=== PATIENT | male | born 1990 | race Hispanic/Latino ===

== ENCOUNTER 2017-07-18 22:34 | Emergency (ER) | payer SELFPAY ==
[2017-07-18 22:59] VITALS: TEMP 97.8
[2017-07-18] MEDS ORDERED: PANTOPRAZOLE SODIUM IV 40 MG VIAL IV ONE (23:10)
--- NOTE | 2017-07-18 23:15 | ED.PDOC ---
History of Present Illness - General Chief Complaint: General Stated Complaint: esophageal spasms Time Seen by Provider: 07/18/17 23:03 Source: patient, family Exam Limitations: no limitations Additional Information: C/O "ESOPHAGEAL PAIN". PT HAS HAD SHARP EPIGASTRIC PAIN WHICH RADIATES INTO CHEST. HAS HAD IT ONCE BEFORE RESOLVED SPONTANEOUSLY. - History of Present Illness Timing/Duration: other - HAS BEEN GOING ON SINCE THIS AM. Severity: moderate Improving Factors: nothing - TRIED TUMS WITHOUT RELIEF. Worsening Factors: nothing Associated Symptoms: denies symptoms Allergies/Adverse Reactions: Allergies NO KNOWN ALLERGY Allergy (Verified 12/08/14 15:24) Home Medications: Ambulatory Orders Esomeprazole Magnesium [Nexium] 40 mg PO DAILY #15 cap 07/19/17 Review of Systems - Review of Systems Constitutional: Denies: chills, fever EENTM: States: no symptoms reported Respiratory: States: short of breath. Denies: cough, wheezing Cardiology: States: chest pain. Denies: palpitations, syncope Gastrointestinal/Abdominal: States: nausea. Denies: abdominal pain, diarrhea, vomiting Genitourinary: States: no symptoms reported Musculoskeletal: States: no symptoms reported Skin: States: other - DIAPHORESIS Neurological: States: no symptoms reported Endocrine: States: no symptoms reported Hematologic/Lymphatic: States: no symptoms reported Past Medical History (General) - Patient Medical History Hx Diabetes: No - Vaccination History Hx Tetanus, Diphtheria Vaccination: No Hx Influenza Vaccination: No Hx Pneumococcal Vaccination: No Immunizations Up to Date: No - Social History Hx Tobacco Use: Yes Hx Alcohol Use: Yes Family Medical History - Family History Father Family History: No Known Physical Exam - Physical Exam General Appearance: Alert, No apparent distress Eye Exam: bilateral normal Ears, Nose, Throat: hearing grossly normal, normal ENT inspection Neck: non-tender, full range of motion, supple Respiratory: lungs clear, no respiratory distress Cardiovascular/Chest: regular rate, rhythm, no murmur Gastrointestinal/Abdominal: normal bowel sounds, non tender, soft, no organomegaly Back Exam: normal inspection, no CVA tenderness, no vertebral tenderness Extremity: normal range of motion, normal inspection Neurologic: alert, normal mood/affect Skin Exam: normal color, warm/dry Lymphatic: no adenopathy Progress - Progress Progress: 07/19/17 00:10 NO FURTHER PAIN - EKG/XRAY/CT EKG: Sinus - RATE 72, NL AXIS, NL INTERVALS, , no ST T wave changes - NAIP, NO OLD FOR COMPARISON Departure - Departure Clinical Impression: GERD (gastroesophageal reflux disease) Qualifiers: Esophagitis presence: esophagitis presence not specified Qualified Code(s): K21.9 - Gastro-esophageal reflux disease without esophagitis Time of Disposition: 00:13 Disposition: Discharge to Home or Self Care Condition: Good Departure Forms: ED Discharge - Pt. Copy, Patient Portal Self Enrollment Instructions: DI for Gastroesophageal Reflux Disease (GERD) Prescriptions: Esomeprazole Magnesium [Nexium] 40 mg PO DAILY #15 cap Home Medications: Ambulatory Orders Esomeprazole Magnesium [Nexium] 40 mg PO DAILY #15 cap 07/19/17
[2017-07-19 00:33] VITALS: BP 142/79; O2SAT 96
== END 2017-07-19 00:33 | disposition home or self-care (01) ==
LOC: ER 22:34
DX: K21.9 Gastro-esophageal reflux disease without esophagitis (principal); Z87.891 Personal history of nicotine dependence

== ENCOUNTER 2019-01-09 22:19 | Emergency (ER) | payer SELFPAY ==
[2019-01-09] MEDS ORDERED: IBUPROFEN 200 MG TAB PO ONE (22:39)
[2019-01-09 22:43] VITALS: BP 152/109; TEMP 98.3; O2SAT 99
[2019-01-09] MEDS ORDERED: cefTRIAXone SODIUM 1 GM VIAL IM ONE (23:12)
[2019-01-09] MEDS ORDERED: DOXYCYCLINE HYCLATE CAP 100 MG CAP PO ONE (23:12)
[2019-01-09] MEDS ORDERED: LIDOCAINE 1% 2 ML VIAL INJ ONE (23:21)
--- NOTE | 2019-01-09 23:39 | CT ---
EXAM DESCRIPTION: Abdoment/Pelvis w/o Contrast CLINICAL HISTORY: 28 years Male left flank and tip of penis pain COMPARISON: None. TECHNIQUE: Contiguous axial images obtained through the abdomen and pelvis without IV contrast. Reformatted images obtained. This exam was performed according to our department optimization program which includes automated exposure control, adjustment of the mA and/or kv according to patient size and/or use of iterative reconstruction technique. FINDINGS: The lung bases are clear. Fatty infiltration of the liver. Spleen is mildly enlarged. Pancreas appears unremarkable. No adrenal masses. The kidneys appear unremarkable. No hydronephrosis or definite ureteral calculi. The gallbladder is visualized. No aneurysmal dilatation of the aorta. No bowel obstruction. Unremarkable appendix. No free pelvic fluid. IMPRESSION: No evidence of acute process specifically no evidence of hydronephrosis or obstructive uropathy Mildly enlarged spleen Electronically signed by: Francoise Bermudez MD 01/09/2019 11:37 PM CDT
--- NOTE | 2019-01-09 23:55 | ED.PDOC ---
History of Present Illness - General Chief Complaint: Problem Stated Complaint: pain during urination Time Seen by Provider: 01/09/19 22:35 Source: patient Exam Limitations: no limitations - History of Present Illness Initial Comments: the patient is a 28-year-old male presenting to emergency room secondary to dysuria for the last 2 days. He has also had some mild intermittent left flank pain for the last year. No hematuria. He was sexually active last week. No discharge. No externalgenital lesions. He reports only being sexually active with his . No history of HSV. No fever. No known history of any kidney stones orurinary tract infections in the past. He has had a little bit of diarrhea. Timing/Duration: other - 48 hours Severity: moderate Improving Factors: nothing Worsening Factors: nothing Associated Symptoms: denies symptoms Allergies/Adverse Reactions: Allergies NO KNOWN ALLERGY Allergy (Verified 12/08/14 15:24) Home Medications: Ambulatory Orders Doxycycline (Monohydrate) [Doxycycline Monohydrate] 100 mg PO BID #14 cap 01/10/19 Review of Systems - Review of Systems Constitutional: States: no symptoms reported EENTM: States: no symptoms reported Respiratory: States: no symptoms reported Cardiology: States: no symptoms reported Gastrointestinal/Abdominal: States: diarrhea Genitourinary: States: dysuria Musculoskeletal: States: back pain - eft flank pain mild Skin: States: no symptoms reported Neurological: States: no symptoms reported Endocrine: States: no symptoms reported All other Systems: No Change from Baseline Past Medical History (General) - Patient Medical History Hx Seizures: No Hx Stroke: No Hx Dementia: No Hx Asthma: No Hx of COPD: No Hx Cardiac Disorders: No Hx Congestive Heart Failure: No Hx Pacemaker: No Hx Hypertension: Yes - recently dx Hx Thyroid Disease: No Hx Diabetes: No Hx Gastroesophageal Reflux: No Hx Renal Disease: No Hx Cancer: No Hx of HIV: No Hx Hepatitis C: No Hx MRSA: No Surgical History: other - Vaccination History Hx Tetanus, Diphtheria Vaccination: No Hx Influenza Vaccination: No Hx Pneumococcal Vaccination: No Immunizations Up to Date: Yes - Social History Hx Tobacco Use: No Hx Chewing Tobacco Use: No Hx Alcohol Use: Yes Hx Substance Use: No Hx Substance Use Treatment: No Hx Depression: No Feels Threatened In Home Enviroment: No Feels Threatened In a Relationship: No Hx Physical Abuse: No Hx Emotional Abuse: No Hx Suspected Abuse: No - Female History Patient is a Female of Child Bearing Age (10 -59 yrs old): No Family Medical History - Family History Father Family History: No Known Physical Exam - Physical Exam General Appearance: Alert, Comfortable, No apparent distress Eye Exam: bilateral normal Ears, Nose, Throat: hearing grossly normal Respiratory: lungs clear, normal breath sounds, no respiratory distress, no accessory muscle use Cardiovascular/Chest: normal peripheral pulses, no edema, other - regular rate Peripheral Pulses: radial,right: 2+, radial,left: 2+ Gastrointestinal/Abdominal: soft, other - mild suprapubic discomfort palpation. No rebound or peritoneal signs. No palpable mass. Rectal Exam: deferred Back Exam: no vertebral tenderness, other - mild left lower back lateral discomfort to pressure. Extremity: normal range of motion, non-tender, normal inspection, no pedal edema, normal capillary refill Neurologic: counseling psychologist II-XII nml as tested, alert, normal mood/affect, oriented x 3 Skin Exam: normal color Comments: Vital Signs - 24 hr 01/09/19 22:30 Temperature 98.3 F Pulse Rate [ 93 H pulse ox] Respiratory 18 Rate Blood Pressure 152/109 [Left Arm] O2 Sat by Pulse 99 Oximetry Progress - Progress Progress: 01/09/19 23:58 the patient's 28-year-old male presenting with what appears to be a urethritis. He is being dosed with Rocephin and doxycycline. He will continue the doxycycline for one week. GC and Chlamydia are being sent off. he did receive 1 dose of Diflucan and metronidazole as empirical coverage. ER warnings are given for any significant worsening. Follow up with primary care doctor next week. 01/10/19 00:00 - Results/Orders Results/Orders: Laboratory Tests 01/09/19 01/09/19 22:30 22:45 POC Glucose 112 H Urine Color Yellow Urine Appearance Clear Urine pH 7.5 Ur Specific Lawrence 1.015 Urine Protein Negative Urine Glucose (UA) Negative Urine Ketones Negative Urine Blood Negative Urine Nitrite Negative Urine Bilirubin Negative Urine Urobilinogen 1.0 Ur Leukocyte Esterase Negative Urine RBC 0 Urine WBC 0-1 Ur Epithelial Cells 0-1 Amorphous Sediment Trace Urine Bacteria 0 GC and Chlamydia were sent off. CT abdomen and pelvis without contrast shows a mild fatty liver. No hydro- nephrosis. No obvious kidney stones. No other acute pathology. Departure - Departure Clinical Impression: Urethritis, nonspecific Disposition: Discharge to Home or Self Care Condition: Fair Departure Forms: ED Discharge - Pt. Copy, Patient Portal Self Enrollment Instructions: Urethritis (DC) Diet: regular diet Activity: increase activity as tolerated Referrals: Delores Caceres, INTERNIST [Primary Care Provider] - 1-5 Days Prescriptions: Doxycycline (Monohydrate) [Doxycycline Monohydrate] 100 mg PO BID #14 cap Home Medications: Ambulatory Orders Doxycycline (Monohydrate) [Doxycycline Monohydrate] 100 mg PO BID #14 cap 01/10/19 Additional Instructions: the patient's 28-year-old male presenting with what appears to be a urethritis. He is being dosed with Rocephin and doxycycline. He will continue the doxycycline for one week. GC and Chlamydia are being sent off. he did receive 1 dose of Diflucan and metronidazole as empirical coverage. ER warnings are given for any significant worsening. Follow up with primary care doctor next week.
[2019-01-09] MEDS ORDERED: FLUCONAZOLE 100 MG TAB PO ONE (23:56)
[2019-01-10] MEDS ORDERED: metroNIDAZOLE 500 MG TAB PO ONE
== END 2019-01-10 00:25 | disposition home or self-care (01) ==
LOC: ER 22:19
DX: N34.2 Other urethritis (principal); R10.9 Unspecified abdominal pain; R19.7 Diarrhea, unspecified; I10 Essential (primary) hypertension
CPT/HCPCS: 74176; 81001; 82948; 87491; 87591; J0696

== ENCOUNTER 2019-01-24 00:29 | Emergency (ER) | payer SELFPAY ==
[2019-01-24] MEDS ORDERED: ASPIRIN (CHEWABLE) 81 MG TAB PO ONE (00:43)
[2019-01-24] MEDS ORDERED: SODIUM CHLORIDE 0.9% 1000ML 1,000 ML IVS ONE (00:43)
[2019-01-24] MEDS ORDERED: ACETAMINOPHEN 500 MG TAB PO ONE (00:43)
[2019-01-24] MEDS ORDERED: IPRATROPIUM/ALBUTEROL 3 ML VIAL NEB ONE (00:44)
--- NOTE | 2019-01-24 00:51 | ED.PDOC ---
History of Present Illness - General Chief Complaint: Chest Pain/TX Stated Complaint: sore throat, pain in chest Time Seen by Provider: 01/24/19 00:37 - History of Present Illness Initial Comments: 28 yo M PMH HTN presents to the ED at bedside c/o sore throat chest pain and SOB 1 hour ago. Denies h/o anxiety depression (denies hallucinations SI HI without suicide plan) but admits high level of stress in his life. Denies fever chills nausea vomiting diarrhea admits chest pain and sob denies diaphoresis. No change in diet rest bowel or bladder. Denies drinking or smoking admits FH HTN DM has PMD for follow up at [facility]. No other c/o today. Allergies/Adverse Reactions: Allergies NO KNOWN ALLERGY Allergy (Verified 12/08/14 15:24) Home Medications: Ambulatory Orders Acetaminophen [Tylenol] 650 mg PO Q6H PRN #30 tab 01/24/19 Azithromycin Tab [Zithromax Tab] 250 mg PO QDPC 5 Days #6 tab 01/24/19 Ibuprofen 600 mg PO Q6H PRN #20 tab 01/24/19 Prednisone 40 mg PO DAILY 5 Days #10 tab 01/24/19 Review of Systems - Review of Systems Constitutional: States: see HPI EENTM: States: see HPI Respiratory: States: see HPI Cardiology: States: see HPI Gastrointestinal/Abdominal: States: see HPI Genitourinary: States: see HPI Musculoskeletal: States: see HPI Skin: States: see HPI Neurological: States: see HPI Endocrine: States: see HPI All other Systems: Reviewed and Negative Past Medical History (General) - Patient Medical History Hx Seizures: No Hx Stroke: No Hx Dementia: No Hx Asthma: No Hx of COPD: No Hx Cardiac Disorders: No Hx Congestive Heart Failure: No Hx Pacemaker: No Hx Hypertension: Yes - recently dx Hx Thyroid Disease: No Hx Diabetes: No Hx Gastroesophageal Reflux: No Hx Renal Disease: No Hx Cancer: No Hx of HIV: No Hx Hepatitis C: No Hx MRSA: No Surgical History: no surgical history - Vaccination History Hx Tetanus, Diphtheria Vaccination: No Hx Influenza Vaccination: No Hx Pneumococcal Vaccination: No Immunizations Up to Date: Yes - Social History Hx Tobacco Use: No Hx Chewing Tobacco Use: No Hx Alcohol Use: No Hx Substance Use: No Hx Substance Use Treatment: No Hx Depression: No Hx Physical Abuse: No Hx Emotional Abuse: No Hx Suspected Abuse: No - Triage Comment ED Triage Comment: had sore throat, and took NyQuil, then developed pain to upper chest Family Medical History - Family History Father Family History: No Known Physical Exam - Physical Exam General Appearance: Anxious Eyes, Ears, Nose, Throat Exam: pharyngeal erythema Neck: non-tender, full range of motion Respiratory: normal breath sounds, no respiratory distress Cardiovascular/Chest: regular rate, rhythm Gastrointestinal/Abdominal: non tender, soft Rectal Exam: deferred Extremity: normal range of motion, non-tender Neurologic: fish and wildlife biologist II-XII nml as tested, no motor/sensory deficits Skin Exam: normal color Progress - Progress Progress: 01/24/19 00:52 A/P-Chest Pain SOB Pharyngitis URI-iv bolus tylenol decadron asa cbc cmp lipase trop flu strep ekg cxr reassess EKG-Non specific TW changes No STEMI NSR 89bpm 01/24/19 02:44 Feeling better after ED treatment will d/c follow up primary care tylenol ibuprofen prednisone azithromycin - Results/Orders Results/Orders: Laboratory Tests 01/24/19 01/24/19 01/24/19 00:38 00:38 00:38 WBC 13.4 H RBC 5.62 Hgb 15.9 Hct 45.5 MCV 81.0 MCH 28.3 MCHC 34.9 RDW 12.3 Plt Count 246 MPV 8.0 Absolute Neuts (auto) 9.80 H Absolute Lymphs (auto) 2.50 Absolute Monos (auto) 1.00 H Absolute Eos (auto) 0.10 Absolute Basos (auto) 0.00 Neutrophils % 73.0 Lymphocytes % 18.8 L Monocytes % 7.3 Eosinophils % 0.7 L Basophils % 0.2 Sodium 138 Potassium 3.2 L Chloride 100 L Carbon Dioxide 24 Anion Gap 17.2 BUN 12 Creatinine 0.90 BUN/Creatinine Ratio 13.3 Random Glucose 111 H Serum Osmolality 276.1 Calcium 9.9 Total Bilirubin 0.6 AST 34 ALT 63 H Alkaline Phosphatase 77 Troponin I < 0.02 Serum Total Protein 8.2 Albumin 4.9 Globulin 3.3 Albumin/Globulin Ratio 1.5 Lipase 120 H Group A Strep Rapid 01/24/19 01/24/19 00:52 02:15 WBC RBC Hgb Hct MCV MCH MCHC RDW Plt Count MPV Absolute Neuts (auto) Absolute Lymphs (auto) Absolute Monos (auto) Absolute Eos (auto) Absolute Basos (auto) Neutrophils % Lymphocytes % Monocytes % Eosinophils % Basophils % Sodium Potassium Chloride Carbon Dioxide Anion Gap BUN Creatinine BUN/Creatinine Ratio Random Glucose Serum Osmolality Calcium Total Bilirubin AST ALT Alkaline Phosphatase Troponin I < 0.02 Serum Total Protein Albumin Globulin Albumin/Globulin Ratio Lipase Group A Strep Rapid Negative Departure - Departure Clinical Impression: SOB (shortness of breath) Chest pain Qualifiers: Chest pain type: unspecified Qualified Code(s): R07.9 - Chest pain, unspecified Pharyngitis Qualifiers: Pharyngitis/tonsillitis etiology: other specified organisms Qualified Code(s): J02.8 - Acute pharyngitis due to other specified organisms URI (upper respiratory infection) Qualifiers: URI type: unspecified URI Qualified Code(s): J06.9 - Acute upper respiratory infection, unspecified Time of Disposition: 02:50 Disposition: Discharge to Home or Self Care Condition: Good Departure Forms: ED Discharge - Pt. Copy, Patient Portal Self Enrollment Instructions: DI for Chest Pain Referrals: Delores Caceres CONSUMER EXPERIENCE CONSULTANT [Primary Care Provider] - 1-2 Weeks Prescriptions: Acetaminophen [Tylenol] 650 mg PO Q6H PRN #30 tab PRN Reason: Pain Azithromycin Tab [Zithromax Tab] 250 mg PO QDPC 5 Days #6 tab Ibuprofen 600 mg PO Q6H PRN #20 tab PRN Reason: Pain Prednisone 40 mg PO DAILY 5 Days #10 tab Home Medications: Ambulatory Orders Acetaminophen [Tylenol] 650 mg PO Q6H PRN #30 tab 01/24/19 Azithromycin Tab [Zithromax Tab] 250 mg PO QDPC 5 Days #6 tab 01/24/19 Ibuprofen 600 mg PO Q6H PRN #20 tab 01/24/19 Prednisone 40 mg PO DAILY 5 Days #10 tab 01/24/19
--- NOTE | 2019-01-24 00:57 | RAD ---
EXAM DESCRIPTION: Chest,1 View CLINICAL HISTORY: 28 years Male r/o pneumonia COMPARISON: None. FINDINGS: The cardiomediastinal silhouette appears unremarkable. No consolidating infiltrates or pleural effusions. No pneumothorax. IMPRESSION: No acute abnormality is identified. Electronically signed by: Hi Bermudez MD 01/24/2019 12:56 AM CDT
[2019-01-24 03:04] VITALS: BP 121/88; TEMP 97.5; O2SAT 97
== END 2019-01-24 03:03 | disposition home or self-care (01) ==
LOC: ER 00:29
DX: R07.9 Chest pain, unspecified (principal); R06.02 Shortness of breath; J02.8 Acute pharyngitis due to other specified organisms; J06.9 Acute upper respiratory infection, unspecified; I10 Essential (primary) hypertension
CPT/HCPCS: 36415; 71045; 80053; 83690; 84484; 85025; 87070; 87502; 87880; 93005; 94640; 94760; J7030; J7620